=== PATIENT | male | born 1970 | race Two or more races ===

== ENCOUNTER 2018-10-29 08:06 | Inpatient (IN) | payer SELFPAY ==
[~2018-10-29] VITALS: Ht 154.9 cm; Wt 61.2 kg
[2018-10-29] MEDS ORDERED: SODIUM CHLORIDE 0.9% 1,000 ML IV ONE ×2 (08:43→20:00)
[2018-10-29 09:02] LABS: BASOPHILS % 1.2 % (0.0-2.0); EOSINOPHILS % 1.3 % (0.0-5.0); HEMATOCRIT. 43.2 % (42.0-52.0); HEMOGLOBIN. 15.1 g/dL (14.0-18.0); MEAN CORPUSCULAR HEMOGLOBIN 31.8 pg (28.0-32.0); MEAN CORPUSCULAR VOLUME 91.2 fL (80.0-94.0); MONOCYTES % 17.5 % (2.0-8.0); RED BLOOD CELL COUNT 4.74 mill/uL (4.7-6.1); RED CELL DISTRIBUTION WIDTH 13.7 % (11.6-14.6)
[2018-10-29 09:12] LABS: CHLORIDE 106 mEq/L (98-107)
[2018-10-29 09:31] LABS: ETHANOL BLOOD 491 mg/dL
[2018-10-29 09:55] LABS: MEAN PLATELET VOLUME 7.2 fl (7.4-10.4)
[2018-10-29] MEDS ORDERED: ONDANSETRON HCL 4MG/2ML INJ IV ONE (20:00)
[2018-10-29] MEDS ORDERED: LORAZEPAM 2MG/ML CPJ IV ONE (20:00)
[2018-10-29] MEDS ORDERED: CHLORDIAZEPOXIDE 25MG CAPSULE PO ONE (20:00)
[2018-10-30] MEDS ORDERED: DIAZEPAM 5 MG TABLET PO ONE (03:15)
[2018-10-30] MEDS ORDERED: LORAZEPAM 2MG/ML CPJ IV ONE ×2 (03:15→09:30)
[2018-10-30 07:59] LABS: CLARITY URINE CLEAR (CLEAR); COLOR URINE YELLOW (YELLOW); KETONES URINE TRACE (NEGATIVE); LEUKOCYTE ESTERASE URINE NEGATIVE (NEGATIVE); NITRITE URINE NEGATIVE (NEGATIVE); OCCULT BLOOD URINE TRACE (NEGATIVE); PH URINE 7.5 (4.5-8.0); PROTEIN URINE 1+ (NEGATIVE); SPECIFIC GRAVITY URINE 1.013 (1.005-1.030)
[2018-10-30 08:16] LABS: *BARBITURATES SCREEN URINE NEGATIVE (NEGATIVE)
[2018-10-30 08:17] LABS: *AMPHETAMINES SCREEN URINE NEGATIVE (NEGATIVE); *BENZODIAZEPINES SCREEN URINE NEGATIVE (NEGATIVE); *COCAINE SCREEN URINE NEGATIVE (NEGATIVE); METHADONE URINE SCREEN NEGATIVE (NEGATIVE); OPIATES URINE SCREEN NEGATIVE (NEGATIVE); PHENCYCLIDINE URINE SCREEN NEGATIVE (NEGATIVE)
[2018-10-30 08:18] LABS: CANNABINOID URINE SCREEN NEGATIVE (NEGATIVE)
[2018-10-30] MEDS ORDERED: CHLORDIAZEPOXIDE 25MG CAPSULE PO ONE (08:30)
[2018-10-30] MEDS ORDERED: FOLIC ACID 1 MG, THIAMINE HCL 100 MG, MVI, ADULT NO.1 10 ML in DEXTROSE 5% WATER 1,000 ML IV ONE ×4 (11:00)
[2018-10-30] MEDS ORDERED: DOCUSATE SODIUM 100MG CAPSULE PO PRN (17:15)
[2018-10-30] MEDS ORDERED: ACETAMINOPHEN 325MG TABLET PO PRN (17:15)
[2018-10-30] MEDS ORDERED: GUAIFENESIN 200MG/10ML SUGAR FREE UDC PO PRN (17:15)
[2018-10-30] MEDS ORDERED: NA PHOS,M-B/NA PHOS,DI-BA ENEMA 118ML PR PRN (17:15)
[2018-10-30] MEDS ORDERED: IPRATROPIUM/ALBUTEROL 0.5-3(2.5)MG/3ML NEB INH PRN (17:15)
[2018-10-30] MEDS ORDERED: ACETAMINOPHEN 650MG/20.3ML UDC GT PRN (17:15)
[2018-10-30] MEDS ORDERED: CLONIDINE 0.1MG TABLET PO PRN (17:15)
[2018-10-30] MEDS ORDERED: DIPHENHYDRAMINE 50MG/ML VIAL IV PRN (17:15)
[2018-10-30] MEDS ORDERED: ACETAMINOPHEN 650MG SUPP PR PRN (17:15)
[2018-10-30] MEDS ORDERED: MAGNESIUM/ALUMINUM HYDROXIDE/SIMETHICONE 30ML UDC PO PRN (17:15)
[2018-10-30 17:40] LABS: BASOPHILS % 1.2 % (0.0-2.0); EOSINOPHILS % 1.9 % (0.0-5.0); HEMATOCRIT. 39.6 % (42.0-52.0); HEMOGLOBIN. 14.1 g/dL (14.0-18.0); LYMPHOCYTES % 17.7 % (20.0-50.0); MEAN CORPUSCULAR HEMOGLOBIN 31.9 pg (28.0-32.0); MEAN CORPUSCULAR VOLUME 89.8 fL (80.0-94.0); MONOCYTES % 7.6 % (2.0-8.0); NEUTROPHILS % 71.6 % (40.0-76.0); RED BLOOD CELL COUNT 4.41 mill/uL (4.7-6.1); RED CELL DISTRIBUTION WIDTH 13.7 % (11.6-14.6)
[2018-10-30 17:44] LABS: PLATELET 47 x1000/uL (130-400)
[2018-10-30 17:46] LABS: INR 1.1; PROTHROMBIN TIME 10.8 sec (9.1-11.1)
[2018-10-30 17:49] LABS: CHLORIDE 93 mEq/L (98-107)
[2018-10-30 17:56] LABS: LDL CHOLESTEROL 85 mg/dL (5-100)
[2018-10-30 17:57] LABS: HDL CHOLESTEROL 105 mg/dL (40-59)
[2018-10-30 23:45] VITALS: BP 130/93
[2018-10-31] VITALS: BP 130/93
[2018-10-31] MEDS: FOLIC ACID 1MG TABLET PO SCH ×2 (00:39→09:25)
[2018-10-31] MEDS: DEXT 5%/0.45% NACL 1000ML 1,000 ML IV SCH ×2 (00:39→09:25)
[2018-10-31] MEDS: SODIUM CHLORIDE 0.9% INJ 3ML FLUSH IVF SCH ×4 (00:40→21:37)
[2018-10-31 04:00] VITALS: BP 120/77
[2018-10-31 05:34] LABS: BASOPHILS % 0.4 % (0.0-2.0); EOSINOPHILS % 0.9 % (0.0-5.0); HEMATOCRIT. 43.1 % (42.0-52.0); HEMOGLOBIN. 15.1 g/dL (14.0-18.0); LYMPHOCYTES % 14.4 % (20.0-50.0); MEAN CORPUSCULAR HEMOGLOBIN 31.5 pg (28.0-32.0); MEAN PLATELET VOLUME 8.2 fl (7.4-10.4); MONOCYTES % 7.1 % (2.0-8.0); NEUTROPHILS % 77.2 % (40.0-76.0); PLATELET 59 x1000/uL (130-400); RED BLOOD CELL COUNT 4.79 mill/uL (4.7-6.1); RED CELL DISTRIBUTION WIDTH 13.4 % (11.6-14.6)
[2018-10-31 05:53] LABS: CHLORIDE 96 mEq/L (98-107)
[2018-10-31 06:09] LABS: LDL CHOLESTEROL 88 mg/dL (5-100)
[2018-10-31 06:12] LABS: HDL CHOLESTEROL 106 mg/dL (40-59)
[2018-10-31] MEDS: THIAMINE HCL 100MG TABLET PO SCH (09:25)
[2018-10-31] MEDS: CHLORDIAZEPOXIDE 25MG CAPSULE PO PRN (09:28)
[2018-10-31 12:00] VITALS: BP 104/68
[2018-10-31 16:00] VITALS: BP 96/64
[2018-10-31 20:00] VITALS: BP 102/66
[2018-10-31] MEDS ORDERED: LACTULOSE 20G/30ML UDC PO PRN (21:00)
[2018-11-01] VITALS: BP 99/60
[2018-11-01] MEDS: DEXT 5%/0.45% NACL 1000ML 1,000 ML IV SCH ×2 (00:52→15:18)
[2018-11-01 04:00] VITALS: BP 133/64
[2018-11-01] MEDS: SODIUM CHLORIDE 0.9% INJ 3ML FLUSH IVF SCH ×3 (06:10→20:54)
[2018-11-01 06:23] LABS: PLATELET 47 x1000/uL (130-400)
[2018-11-01 08:00] VITALS: BP 127/94
[2018-11-01] MEDS: THIAMINE HCL 100MG TABLET PO SCH (09:19)
[2018-11-01] MEDS: FOLIC ACID 1MG TABLET PO SCH (09:19)
[2018-11-01] MEDS: CHLORDIAZEPOXIDE 25MG CAPSULE PO PRN ×2 (09:23→20:39)
[2018-11-01 12:00] VITALS: BP 117/88
[2018-11-01] MEDS ORDERED: POTASSIUM CHLORIDE 20MEQ TABLET SR PO PRN (12:30)
[2018-11-01] MEDS ORDERED: THIA100T13 MT (12:32)
[2018-11-01 13:59] LABS: CHLORIDE 104 mEq/L (98-107)
[2018-11-01 15:26] LABS: BASOPHILS % 1.1 % (0.0-2.0); EOSINOPHILS % 1.5 % (0.0-5.0); HEMATOCRIT. 38.4 % (42.0-52.0); HEMOGLOBIN. 13.6 g/dL (14.0-18.0); LYMPHOCYTES % 15.1 % (20.0-50.0); MEAN CORPUSCULAR VOLUME 90.5 fL (80.0-94.0); MEAN PLATELET VOLUME 8.2 fl (7.4-10.4); MONOCYTES % 10.3 % (2.0-8.0); PLATELET 72 x1000/uL (130-400); RED BLOOD CELL COUNT 4.25 mill/uL (4.7-6.1)
[2018-11-01 16:00] VITALS: BP 88/56
[2018-11-01 20:00] VITALS: BP 100/73
[2018-11-02] VITALS: BP 96/54
[2018-11-02] MEDS: DEXT 5%/0.45% NACL 1000ML 1,000 ML IV SCH (01:18)
[2018-11-02 04:00] VITALS: BP 107/76
[2018-11-02] MEDS: SODIUM CHLORIDE 0.9% INJ 3ML FLUSH IVF SCH (06:15)
[2018-11-02 08:00] VITALS: BP 103/60
[2018-11-02] MEDS: THIAMINE HCL 100MG TABLET PO SCH (09:37)
[2018-11-02] MEDS: CHLORDIAZEPOXIDE 25MG CAPSULE PO PRN (09:37)
[2018-11-02] MEDS: FOLIC ACID 1MG TABLET PO SCH (09:37)
[2018-11-02 12:28] VITALS: BP 125/84
== END 2018-11-02 13:00 | disposition home or self-care (01) | DRG 280 ==
LOC: EDBD 08:12 → ER 08:12 → 5WST 10-30 12:04 → EDBEDREQ 10-30 12:05 → ENRESERV 10-30 21:59
PROVIDERS: ADMIT Family Medicine; ATTEND Family Medicine
DX: K70.10 Alcoholic hepatitis without ascites (principal); G92 Toxic encephalopathy; D69.6 Thrombocytopenia, unspecified; E87.1 Hypo-osmolality and hyponatremia; E86.0 Dehydration; F10.129 Alcohol abuse with intoxication, unspecified; E87.6 Hypokalemia; E78.5 Hyperlipidemia, unspecified; R79.89 Other specified abnormal findings of blood chemistry; K30 Functional dyspepsia; K59.00 Constipation, unspecified; Z59.0 Homelessness
CPT/HCPCS: 36415; 80061; 80305; 80320; 82140; 83036; 84443; 96361; 96374; 96375; 97116; 97162; 99285; J2060; J2405; J3411; J3490; J7030; J7070; G0480